=== PATIENT | female | born 1970 | race Caucasian/White ===

== ENCOUNTER 2024-07-29 06:15 | Day surgery (SDC) | payer OTHER, SELFPAY ==
[2024-07-23 12:57] VITALS: BMI 24.4
[2024-07-23 13:31] LABS: Hematocrit 37.1 % (37.0-47.0); Hemoglobin 12.9 g/dL (12.0-16.0); Mean Corp Hgb Conc. 34.8 g/dL (33.0-37.0); Mean Corpuscular Hgb 31.3 pg (27.0-31.0); Mean Platelet Volume 8.9 fL (7.4-10.4); Platelet Count 246 10^3/uL (130-400); Red Blood Cell Count 4.12 10^6/uL (4.20-5.40); Red Cell Dist. Width 12.2 % (11.5-14.5); White Blood Cell Count 6.2 10^3/uL (4.8-10.8)
[2024-07-23 13:58] LABS: Blood Urea Nitrogen 13 mg/dl (7-17); Calcium 9.5 mg/dl (8.4-10.2); Carbon Dioxide 32 mmol/L (22-30); Chloride 100 mmol/L (98-107); Estimated Creatinine Clearance 77 ml/min; Glucose 83 mg/dl (70-99); Sodium 142 mmol/L (135-145); eGFR > 60.00
[2024-07-29] VITALS (9 sets, daily range): BP systolic 115–142; BP diastolic 73–88; BMI 24.4
[2024-07-29] MEDS: Pyridium 200 MG PO (07:55)
[2024-07-29] MEDS: TYLENOL 650 MG PO (12:28)
== END 2024-07-29 12:35 | disposition home or self-care (01) ==
LOC: SDS 06:15
PROVIDERS: ATTENDING PHYSICIAN Obstetrics & Gynecology
PROC: 0TSD0ZZ Reposition Urethra, Open Approach (ICD-10-PCS; 2024-07-29)
DX: N39.3 Stress incontinence (female) (male) (principal); N36.41 Hypermobility of urethra
CPT/HCPCS: 57288; 36415; 80048; 85027; 86850; 86900; 86901; 93005; C1771

== ENCOUNTER → 2024-12-02 10:38 | Outpatient (REF) | payer OTHER, SELFPAY | LOC: RAD 10:38 | PROVIDERS: ATTENDING PHYSICIAN Physician Assistant | DX: R31.0 Gross hematuria (principal) | CPT/HCPCS: 76770 ==

== ENCOUNTER → 2024-12-13 15:39 | Outpatient (REF) | payer OTHER, SELFPAY | LOC: RAD 15:39 | PROVIDERS: ATTENDING PHYSICIAN Obstetrics & Gynecology | DX: R31.0 Gross hematuria (principal) | CPT/HCPCS: 74178; Q9967 ==

== ENCOUNTER 2025-01-24 06:21 | Day surgery (SDC) | payer OTHER, SELFPAY ==
[2025-01-21 10:58] LABS: Hematocrit 38.5 % (37.0-47.0); Hemoglobin 13.1 g/dL (12.0-16.0); Mean Platelet Volume 9.1 fL (7.4-10.4); Platelet Count 246 10^3/uL (130-400); Red Blood Cell Count 4.23 10^6/uL (4.20-5.40); Red Cell Dist. Width 12.8 % (11.5-14.5); White Blood Cell Count 5.7 10^3/uL (4.8-10.8)
[2025-01-21 11:06] LABS: Blood Urea Nitrogen 15 mg/dl (7-17); Calcium 9.3 mg/dl (8.4-10.2); Carbon Dioxide 30 mmol/L (22-30); Chloride 103 mmol/L (98-107); Glucose 84 mg/dl (70-99); Potassium 4.7 mmol/L (3.5-5.1); Sodium 142 mmol/L (135-145); eGFR > 60.00
[2025-01-21 13:05] VITALS: BMI 24.6
[2025-01-24] VITALS (8 sets, daily range): BP systolic 105–121; BP diastolic 65–77; BMI 24.6
[2025-01-24 11:25] LABS: Glucose - Point of Care 98 mg/dl (70-99)
[2025-01-24] MEDS: Pyridium 200 MG PO (13:38)
== END 2025-01-24 14:17 | disposition home or self-care (01) ==
LOC: SDS 06:21
PROVIDERS: ATTENDING PHYSICIAN Urology
DX: N32.89 Other specified disorders of bladder (principal); N30.20 Other chronic cystitis without hematuria; R31.0 Gross hematuria
CPT/HCPCS: 52204; 88305; 36415; 80048; 82962; 85027